=== PATIENT | male | born 1980 | race Caucasian/White ===

== ENCOUNTER 2022-04-21 05:52 | Day surgery (SDC) | payer OTHER, SELFPAY ==
[2022-04-21 06:28] VITALS: BP 122/83; PULSE 73; RESP 16; TEMP 36.6; O2SAT 97; BMI 37.9
[2022-04-21] MEDS: Lactated Ringers 1,000 ML 15 ML IV (06:35)
--- NOTE | 2022-04-21 07:16 | HP.PCM_ITS ---
History and Physical Date of Admission: 04/21/22 Intake Vital Signs ? 04/07/2213:04 Height 5 ft 10 in Weight: 260 lb 8 oz BMI 37.3 BP 134/86 H Blood Pressure Location Rt brachial Position Sitting Respiration 18 Pulse 77 Pulse SourceB NIBP Temp 97.7 F L Temp Source Temporal Pulse Oximetry (%) 97 Oxygen Delivery Method room air Intake Visit Reasons:?Umbilical Hernia Chief Complaint: umbilical hernia Boating Safety Officer Required: No Is patient in pain?: No Allergies No Known Allergies Allergy (Verified 04/07/22 13:05) Medications NK? 04/07/22 [History Confirmed 04/07/22] PFSH Medical History?(Updated 04/07/22 @ 13:[address] Calvin Negron MD) History of renal calculi Surgical History?(Updated 04/07/22 @ 13:03 by Carina Rae) History of extraction of renal calculus History of repair of ACL Family History?(Updated 04/07/22 @ 13:04 by Carina Rae) Father Diabetes Myocardial infarction Heart disease Social History?(Updated 04/07/22 @ 13:04 by Carina Rae) Smoking Status:? Former smoker HPI HPI HPI: Patient presents with umbilical hernia.? He says he has had this about a year and is becoming more painful especially when pushed on.? The patient reports no nausea or vomiting.? He has never had hernia repair in the past. ROS General General: No weight change, appetite, fatigue, colon cancer, breast cancer or weakness HEENT HEENT: No difficulty swallowing, eye injury, eye surgery, swollen glands or hoarseness Endo Endocrine: No thyroid disease, diabetes mellitus, thyroid cancer, Hair loss, heat intolerance or cold intolerance Musc Musculoskeletal: No back problems, arthritis, rheumatoid arthritis, gout or joint pain Cardio Cardiovascular: No murmur, pacemaker, heart disease, atrial fibrillation, high blood pressure, heart attack, heart stent, palpitations, shortness of breat with exertion or chest pain Psych Psychiatric: No depression, anxiety or hearing voices Resp Respiratory: No shortness of breath, No sleep apnea, No cough, No COPD, No asthma, No emphysema and No wheezing Gastro Gastrointestinal: Yes abdominal pain, No nausea or vomiting, No diarrhea, No constipation, No blood in stool, Yes acid reflux, No hemorrhoids, No ulcers, No gallbladder problem and No black,tarry stools Maxime Hematologic: No blood thinners, No blood disorders, No bleeding, No anemia and No blood clots Neuro Neurologic: No weakness Exam Const General: cooperative Orientation: alert and oriented x3 HENMT Head: normal to inspection Neck Neck: normal visual inspection and full ROM Chest Chest palpation & inspection: normal inspection of the chest Resp Effort & Inspection: normal respiratory effort Auscultation: clear to auscultation bilaterally Cardio Rate: regular rate Rhythm: regular rhythm GI Inspection: non-distended Palpation: soft, hernia umbilical and nontender Skin General: no rashes or lesions noted Neuro General: patient alert and patient oriented x3 Extrem General: full ROM Psych Appearance: grossly normal Mental Status: mental status grossly normal Assessment and Plan Assessment and Plan (1) Umbilical hernia without mention of obstruction or gangrene: ?Status:?Acute ?Qualifiers: ?Obstruction and gangrene presence:?without obstruction or gangrene? Qualified Code(s):?K42.9 - Umbilical hernia without obstruction or gangrene ?Plan: Patient is a very small umbilical hernia.? I discussed open umbilical hernia repair with him.? I discussed that I would recommend mesh if the hernia was over 1 cm in diameter but this is unlikely as the hernia seems very small.? I discussed suture repair if the defect is smaller than 1 cm.? Patient understands and is in agreement and would like to proceed with surgery.? I discussed the risks of bleeding infection and injury to underlying organs as well as mesh placement in detail.? Patient understands all the risks. Calvin Negron MD Pager: [facility] [address] [place] [address] [address] [place] [address] Office: I have examined the patient and the H&P has been reviewed. There are no clinical changes since date of exam.
[2022-04-21] MEDS: Cefazolin 2 GM in 0.9% Normal Saline 100 ML IV (07:40)
[2022-04-21] MEDS: Bupivacaine Mpf 0.5% 30 ML VIAL (07:43)
[2022-04-21 08:01] VITALS: BP 122/83; BP 137/85; PULSE 94; RESP 16; TEMP 36.4; O2SAT 93
--- NOTE | 2022-04-21 08:13 | OP.PCM_ITS ---
Report of Operation Date of Procedure: 04/21/22 Pre-Operative Diagnosis: Umbilical hernia Post-Operative Diagnosis: Umbilical hernia Surgery/Procedure Performed:: Umbilical hernia repair Description of Procedure: Patient was brought back to the operating room and general anesthesia was induced. The abdomen was prepped and draped in usual sterile fashion. An elliptical incision was marked over the umbilicus and then injected with local a nesthetic. Incision was made with a scalpel and deepened to the fascia. The hernia was dissected free circumferentially using electrocautery. The hernia contents were reduced. The hernia defect was less than 1 cm. The edges were cauterized to induce inflammation and then the defect was sutured closed in a transverse fashion using three 2-0 Ethibond sutures. The subcutaneous tissue was irrigated and suctioned dry and the incision was closed with interrupted 3-0 Vicryl suture and Steri-Strips. Patient tolerated the procedure well. Admit VTE Documentation VTE Mechan Device Prophylaxis: SCD's
[2022-04-21 08:15] VITALS: BP 122/83; BP 141/92; PULSE 77; RESP 16; O2SAT 92
--- NOTE | 2022-04-21 08:15 | DCINST_ITS ---
Discharge Instructions Procedure Hernia Diet Discharge Diet: Light diet - advance as tolerated Activity Discharge Activity: May Not Drive (for 2-3 days or while taking narcotic pain meds.) and May Shower (with the bandage in place 1-2 days after surgery.) Lifting Restrictions: 20 pounds for 4 weeks. Additional Activity Instructions:: Climbing stairs is fine, walking is encouraged. Sitting in bed may be uncomfortable. Sitting up using your lateral muscles (sitting up sideways) is usually more comfortable. Do not drive, work heavy equipment of sign legal documents for 24 hours. Ice 20 minutes on 20 minutes off as needed. Pain medications may cause nausea, you should typically eat light foods as you take your pain medications. Take ibuprofen and Tylenol alternating for pain. Oxycodone as needed for breakthrough pain. Pain medications may also cause constipation. If you have difficulty with this, discuss with your doctor. Dressing / Incision Call your doctor if your incision/area has: Continuous Slow Oozing, Sudden Increased Bleeding, Increased Pain/ Swelling, Increased Redness and Foul Smelling Discharge Call your doctor if you observe: Fever of 101 or Higher Suture Line Care: Avoid Pulling/Pushing and Avoid Pinching/Bending Remove Dressing in: 3 days (Remove clear bandages in 3 days, remove Steri-Strips in 7 to 10 days.) Cleanse incision/area with: Soap & Water Follow Up Care Please Follow Up With: Calvin Negron MD When: Please call to schedule 2 week follow up appointment. [phone] Test Results: Test results from this visit will be discussed in further detail at your follow- up appointment, if applicable. Discharge Plan Admission Attending Provider: Calvin Negron Primary Care Provider: Christina Hernadez Discharge Orders/Prescriptions Prescriptions: New oxycodone 5 mg tablet 5 - 10 mg PO Q6H PRN (Reason: pain) 5 Days Qty: 15 0RF Referrals / Follow Up: Christina Hernadez MD [Primary Care Provider] - Disposition Disposition (needs filled in before D/C Order can be placed): Home, Self Care
[2022-04-21 08:30] VITALS: BP 122/83; BP 148/92; PULSE 81; RESP 16; O2SAT 95
[2022-04-21 08:38] VITALS: BP 122/83; BP 139/86; PULSE 73; RESP 14; TEMP 36.4; O2SAT 95
[2022-04-21 09:35] VITALS: BP 122/83; BP 123/91; PULSE 74; RESP 18; TEMP 36.3; O2SAT 99
== END 2022-04-21 09:40 | disposition home or self-care (01) ==
LOC: SDC 05:53 → AC 05:54
PROVIDERS: PCP Family Medicine; Referring Provider Surgery; Visit Provider Surgery
PROC: (CPT 49585; principal; 2022-04-21 07:15)
DX: K42.9 Umbilical hernia without obstruction or gangrene (principal); Z87.891 Personal history of nicotine dependence; Z87.442 Personal history of urinary calculi; Z90.49 Acquired absence of other specified parts of digestive tract
CPT/HCPCS: 49585; 00830; J7120; J2405

== ENCOUNTER → 2023-06-18 | Outpatient (CLI) | payer OTHER, SELFPAY ==
[2023-06-18 15:14] LABS: Absolute Lymphocyte Count 3.05 X10^3/uL (0.83-4.51); Absolute Neutrophil Count 3.5 X10^3/uL (2.0-7.7); Basophil# 0.06 X10^3/uL; Basophil% 0.8 % (0-1); Eosinophil# 0.22 X10^3/uL; Hematocrit 44.2 % (40-54); Hemoglobin 14.8 g/dL (13.0-16.5); Lymphocyte # 3.05 X10^3/ul (0.83-4.51); Lymphocyte % 41.5 % (19-41); Mean Corp Hgb Conc 33.5 g/dL (32-36); Mean Corpuscular Hgb 27.6 pg (27.0-32.0); Mean Corpuscular Volume 82.5 fL (80-94); Mean Platelet Vol. 9.3 fl (6.2-12.0); Monocyte# 0.51 X10^3/uL; Monocyte% 6.9 % (0-10); NRBC Flagged by Analyzer 0 % (0-5); Neutrophil % 47.7 % (47-70); Platelet Count 278 K/mm3 (150-450); RBC Distribution Width CV 12.5 % (11.6-14.6); RBC Distribution Width SD 37.7 fl (35.1-43.9); Red Blood Count 5.36 M/mm3 (4.6-6.2); White Blood Count 7.4 K/mm3 (4.4-11.0)
[2023-06-18 16:17] LABS: ALB/GLOB Ratio 1.2 RATIO (0.9-2.4); AST(SGOT) 31 U/L (15-37); Alanine Aminotransfer ALT/SGPT 74 U/L (16-61); Albumin, Serum 4.1 g/dL (3.2-5.0); Alkaline Phosphatase 77 U/L (45-117); Anion Gap 4 (5-15); BUN 13 mg/dL (7-18); BUN/Creat Ratio 10.7 RATIO (10-20); Calcium,Total 9.5 mg/dL (8.5-10.1); Chloride 106 mmol/L (98-107); Cholesterol 192 mg/dL (200); Creatinine, Serum 1.21 mg/dL (0.70-1.30); EST Glomerular Filtration Rate 69 mL/min (>60); Est Glom Filt Rate - Afr Amer 84 mL/min (>60); Globulin 3.5 g/dL (2.2-4.2); Glucose 88 mg/dL (74-106); High Density Lipoprotein 43 mg/dL; Potassium 3.9 mmol/L (3.5-5.1); Protein, Total 7.6 g/dL (6.4-8.2); Sodium Level 140 mmol/L (136-145); Triglycerides 142 mg/dL; Very Low Density Lipoprotein 28 mg/dL (5-40)
== END | disposition home or self-care (01) ==
LOC: LAB 14:52
PROVIDERS: PCP Family Medicine; Referring Provider Family Medicine; Visit Provider Family Medicine
DX: Z00.00 Encounter for general adult medical examination without abnormal findings (principal)
CPT/HCPCS: 36415; 80053; 80061; 85025

== ENCOUNTER 2023-12-21 07:43 | Day surgery (SDC) | payer OTHER, SELFPAY ==
[2023-12-21] VITALS (9 sets, daily range): BP systolic 88–128; BP diastolic 37–87; PULSE 68–88; RESP 12–20; TEMP 36–36.3; O2SAT 91–99; BMI 37.6
--- NOTE | 2023-12-21 08:10 | PRE.ANES_ITS ---
ASA Classification* ASA Classification ASA Classification: 2 Assessment & Plan Anesthesia* Anesthesia Assessment Anesthesia Assessment: Discussed sedation and/or anesthesia options, risks, benefits, and alternatives with patient/parents/legal guardian/POA. Questions invited. The patient/parents/legal guardian/POA seems to understand and agrees to proceed with anesthesia plan. Reviewed the physical assessment, medical history, allergy history and patient home medications list prior to surgery/procedure/anesthetic and documented any changes. Performed airway and anesthesia risk assessments. Anesthesia Type Anesthesia Type: General (see written pre anesthesia record for full assessment) Anesthesia Focused Assessment* Airway Assessment Mouth opens: >3 cm Mallampati Score: II Focused Labs Anesthesia Preop lab: CBC WBC 7.4 K/mm3 (4.4-11.0) 06/18/23 14:54 RBC 5.36 M/mm3 (4.6-6.2) 06/18/23 14:54 Hgb 14.8 g/dL (13.0-16.5) 06/18/23 14:54 Hct 44.2 % (40-54) 06/18/23 14:54 Plt Count 278 K/mm3 (150-450) 06/18/23 14:54 CHEMISTRY Potassium 3.9 mmol/L (3.5-5.1) 06/18/23 14:54 Sodium 140 mmol/L (136-145) 06/18/23 14:54 BUN 13 mg/dL (7-18) 06/18/23 14:54 Creatinine 1.21 mg/dL (0.70-1.30) 06/18/23 14:54 Glucose 88 mg/dL (74-106) 06/18/23 14:54 COAG Pre-Assessment Diagnosis/Proposed Procedure Planned Operative Procedure(s): LAP VENTRAL/UMBILICAL HERNIA REPAIR WITH MESH Anesthesia History Anesthesia History - drosophere operator: Anesthesia History - drosophere operator Hx Hospitalization No 12/14/23 12:33 Any Problems With Anesthesia No 12/14/23 12:33 Cholinesterase deficiency No 12/14/23 12:33 You/Your Family Experience No 12/14/23 12:33 fever (hyperthermia) with Relationship Recent Exposure to Contagious Disease Does patient have nerve No 12/14/23 12:33 stimulator Patient instructed to have device shut off --Does patient have Pacemaker or ICD? When Was Last Pacemaker Check QUESTION #4 FULL TEXT: You/Your Family Experience fever (hyperthermia) with Anesthesia Last Oral Intake Last Oral intake: Last Oral Intake NPO since Meds taken in AM with sips of water? Meds patient instructed to take am of surgery PONV PONV - drosophere operator: PONV - drosophere operator Female No 12/14/23 12:33 HX of Motion Sickness No 12/14/23 12:33 HX of N/V After Surgery No 12/14/23 12:33 Non-Smoker Yes 12/14/23 12:33 Duration of Surgery greater Yes 12/14/23 12:33 than 60 minutes Number of Risk Factors 2 12/14/23 12:33 PONV Score Moderate Risk 12/14/23 12:33 Height & Weight Height & Weight: Anesthesia: Height & Weight Height 5 ft 10 in 12/18/23 07:48 Weight: 120.656 kg 12/18/23 07:48 Respiratory Assessment Respiratory Assessment - drosophere operator: Respiratory Tract Infection Hx - drosophere operator Hx Respiratory Tract Infection No 12/14/23 12:33 STOP Sleep Apnea STOP Sleep Apnea - drosophere operator: STOP Sleep Apnea - drosophere operator Hx Hypertension No 12/14/23 12:33 Hx Sleep Apnea No 12/14/23 12:33 CPAP BIPAP Do you snore loudly (louder No 12/14/23 12:33 than talking or can be heard Do you often feel tired/ No 12/14/23 12:33 fatigued/ sleepy during daytime? Has anyone observed you stop No 12/14/23 12:33 breathing during sleep? STOP Results Negative 12/14/23 12:33 QUESTION #5 FULL TEXT : Do you snore loudly (louder than talking or can be heard through closed doors)? 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 Specify any problems Hx of Preganancy in last 3 N/A 12/14/23 12:33 Months Nurse Filling Out Transfusion DSCHRIBER 12/14/23 12:33 & Questions: Date: 12/14/23 12/14/23 12:33 Time: 12:34 12/14/23 12:33 Patient unable to answer at this time (ie. confused, unrespo /Reproduction History /Reproductive History - drosophere operator: /Reproductive Hx- drosophere operator Hx Now No 12/14/23 12:33 Gestational Age (in weeks): EDC: Hx Hx Para Hx Section SAB No 12/14/23 12:33 Active Medications Active Medications: Current Medications Generic Name Dose Route Start Last Admin Trade Name Freq PRN Reason Stop Dose Admin Cefazolin Sodium 3 gm/ Sodium 115 mls @ 150 mls/hr 12/21/23 09:25 Chloride IV 12/21/23 10:10 PREOP ONE Lactated Ringer's 1,000 mls @ 15 mls/hr 12/21/23 08:15 IV .Q48H MARQUIS PFSH Medical History Loss of hearing Restless legs Wears glasses Alcohol use Heartburn Former smoker Home Medications ?Medication ?Instructions ?Recorded ?Last Taken ?Type NK 08/03/22 Unknown History Allergy/AdvReac Type Severity Reaction Status Date / Time No Known Allergies Allergy Verified 12/14/23 12:32 Family History Father Diabetes Myocardial infarction Heart disease Surgical History Hx of ventral hernia repair Hx of appendectomy History of repair of ACL History of extraction of renal calculus Social History Smoking Status: Former smoker Review of Systems (Anesthesia) ROS Narrative System reviewed and no additional complaints, except as documented.
--- NOTE | 2023-12-21 08:13 | EKG12_ITS ---
Test Reason : PRE OP Blood Pressure : / mmHG Vent. Rate : 063 BPM Atrial Rate : 063 BPM P-R Int : 166 ms QRS Dur : 098 ms QT Int : 402 ms P-R-T Axes : 063 039 029 degrees QTc Int : 411 ms Normal sinus rhythm Normal ECG No previous ECGs available Confirmed by Kota Ley ([id number]), editorial manager JOHN PALOMO ([id number]) on 01/01/2024 6:42:44 AM Referred By: Calvin Negron Confirmed By:Kota Ley
--- NOTE | 2023-12-21 08:29 | PCM.HP.BLA ---
History and Physical Date of Admission: 12/21/23 Intake Vital Signs 08/04/2311:15 11/22/2413:38 Height 5 ft 10 in 5 ft 10 in Respiration 18 Intake Visit Reasons: PAIN/IRRIATION AT SURGICAL SITE Chief Complaint: bulge at umbilicus Mechanical Service Technician Required: No Is patient in pain?: No Allergies No Known Allergies Allergy (Verified 11/23/23 14:39) Medications ?Medication ?Instructions ?Recorded ?Confirmed ?Type NK 08/03/22 11/23/23 History Have you fallen in the past year?: No PFSH Medical History Wears glasses Alcohol use Heartburn Former smoker History of renal calculi Surgical History Hx of appendectomy History of repair of ACL History of extraction of renal calculus Family History Father Diabetes Myocardial infarction Heart disease Social History Smoking Status: Former smoker HPI HPI HPI: Patient is a 43-year-old male with recurrent bulge at his prior hernia site. The patient had umbilical hernia repair with mesh in 2021. He reports about 3 months ago he started having bulging at his umbilicus again and having pain when he lifts something heavy. ROS General General: No weight change, appetite, fatigue, colon cancer, breast cancer or weakness HEENT HEENT: No difficulty swallowing, eye injury, eye surgery, swollen glands or hoarseness Endo Endocrine: No thyroid disease, diabetes mellitus, thyroid cancer, Hair loss, heat intolerance or cold intolerance Skin Skin: No rash or changing moles Breast Breast: No left breast lump, right breast lump, nipple discharge, breast pain, abnormal mammogram, abnormal US or breast enlargement Musc Musculoskeletal: No back problems, arthritis, rheumatoid arthritis, gout or joint pain Cardio Cardiovascular: No murmur, pacemaker, heart disease, atrial fibrillation, high blood pressure, heart attack, heart stent, palpitations, shortness of breat with exertion or chest pain Psych Psychiatric: No depression, anxiety or hearing voices Resp Respiratory: No shortness of breath, No sleep apnea, No cough, No COPD, No asthma, No emphysema and No wheezing Gastro Gastrointestinal: Yes abdominal pain, No nausea or vomiting, No diarrhea, No constipation, No blood in stool, No acid reflux, No hemorrhoids, No ulcers, No gallbladder problem and No black,tarry stools Maxime Hematologic: No blood thinners, No blood disorders, No bleeding, No anemia and No blood clots Neuro Neurologic: No system reviewed and no additional complaints, except as documented, No as per HPI, No abnormal gait, No abnormal hearing, No abnormal movements, No abnormal speech, No behavioral changes, No burning sensations, No confusion, No convulsions, No disequilibrium, No dizziness, No localized weakness, No frequent falls, No headache(s), No lack of coordination, No loss of vision, No memory loss, No numbness, No other visual disturbances, No radicular pain, No restless legs, No sensory deficit, No syncope, No tingling, No tremor(s), No weakness and No other Exam Const General: cooperative Orientation: alert and oriented x3 HENMT Head: normal to inspection Neck Neck: normal visual inspection and full ROM Chest Chest palpation & inspection: normal inspection of the chest Resp Effort & Inspection: normal respiratory effort Auscultation: clear to auscultation bilaterally Cardio Rate: regular rate Rhythm: regular rhythm GI Inspection: non-distended Palpation: soft, hernia umbilical and nontender Skin General: no rashes or lesions noted Neuro General: patient alert and patient oriented x3 Extrem General: full ROM Psych Appearance: grossly normal Mental Status: mental status grossly normal Assessment and Plan Assessment and Plan (1) Recurrent umbilical hernia: Status: Acute Plan: The patient seems to have a recurrent umbilical hernia. It does contain fat and it is reducible. I discussed performing a laparoscopic repair with a larger piece of mesh. I discussed the procedure in detail as well as the risks including but not limited to bleeding, infection, injury other organs such as the bowel or bladder. I also discussed possibly removing the old mesh or having to perform an incision over the hernia to close it open. Calvin Negron MD Pager: [facility] [address] [place] [address], [address] [place] [address] Office: I have examined the patient and the H&P has been reviewed. There are no clinical changes since date of exam.
[2023-12-21] MEDS: Lactated Ringers 1,000 ML 15 ML IV ×2 (08:35→10:19)
[2023-12-21] MEDS: Cefazolin 3 GM in 0.9% Normal Saline (100mL Bag) 100 ML IV (09:05)
--- NOTE | 2023-12-21 09:25 | HERN_PTH ---
PATIENT: BALBIR TREVIÑO LOC: [facility] [place] U#:[id number] AGE/SX: 43/M ROOM: RE12/21/[address]: Dr. Calvin Negron MD : 1980 BED: DIS: 12/21/2023 SPEC #: [id number] RECD: 12/21/23 10:00 STATUS: JYOTSNA CARROLL #: [id number] MARIAA: 12/21/23 09:[address]: Calvin Negron DEPT: SURGICAL PATHOLOGY RECD BY: Mariama Moreno ENTERED: 12/21/23 11:16 SP TYPE: Hernia OTHR DR: Dr. Christina Hernadez MD Tissues: HERNIA Procedures: Surgery Specimen Level II HEADER OPERATION: Laparoscopic, recurrent umbilical hernia repair with mesh PRE-OP DIAGNOSIS: Recurrent umbilical hernia TISSUE SUBMITTED: Hernia sac MICROSCOPIC DIAGNOSIS Hernia sac: A piece of fibroadipose and fibroconnective tissue, consistent with hernia sac with chronic inflammation and reactive changes. SJ/mr 12/22/2023 MICROSCOPIC DESCRIPTION Slides are reviewed. GROSS DESCRIPTION Received in fixative is one container labeled with the patient's name and designated Hernia sac. The specimen consists of a piece of gutierrez-pink soft tissue measuring 2.8 x 1.2 x 0.7cm. Sections do not reveal any mass lesion. The specimen is bisected and do not reveal any mass lesion. The entire specimen is submitted in one cassette. 12/21/2023 TC:5 CPT:62861
[2023-12-21] MEDS: Bupiv/Epi 0.25% 30 ML Vial (09:28)
--- NOTE | 2023-12-21 09:38 | PCM.OPRPT ---
Report of Operation Date of Procedure: 12/21/23 Pre-Operative Diagnosis: Recurrent umbilical hernia Post-Operative Diagnosis: Recurrent umbilical hernia Surgery/Procedure Performed:: Laparoscopic recurrent umbilical hernia repair with mesh Type of Anesthesia: General/Regional Specimen's removed: Hernia sac Estimated Blood Loss (mL): 5 Description of Procedure: Patient was brought back the operating room and general anesthesia was induced. The abdomen was prepped and draped in usual sterile fashion. A small incision was made in the left upper quadrant and using Visiport technique the abdomen is entered and inflated to 15 mmHg. There were no injuries from entry. Next the umbilical hernia was identified. The local incision was reincised and the hernia sac was identified and excised. Three 0 Nurolon sutures were used to close the hernia defect but they were not tied. A 12 mm port was placed through the umbilical defect and the abdomen was reinsufflated. Next an [address] round mesh with echo positioning device was chosen. It was placed through the umbilical port. Next a 5 mm port was made in the left lower quadrant under direct visualization. After the mesh was positioned the balloon was inflated and clamped and then 4 tacks were used to tack the mesh in place. Next the balloon was removed in its entirety. Next the mesh was circumferentially tacked to the anterior abdominal wall using secure strap tacker. There was good overlap of the hernia on all sides. The abdomen was then allowed to desufflate. The sutures overlying the midline hernia were then closed. The skin incisions were injected with local anesthetic and closed with interrupted 4-0 Monocryl sutures. Steri-Strips and bandages were applied. Patient was taken to PACU in stable condition and tolerated procedure well. Grafts/Implants Used: [address] mesh Admit VTE Documentation VTE Mechan Device Prophylaxis: SCD's
--- NOTE | 2023-12-21 09:49 | EX.PCM.DISCH ---
Discharge Instructions Procedure Hernia Diet Discharge Diet: Light diet - advance as tolerated Activity Discharge Activity: May Not Drive (for 2-3 days or while taking narcotic pain meds.) and May Shower (with the bandage in place 1-2 days after surgery.) Lifting Restrictions: 20 pounds for 6 weeks. Additional Activity Instructions:: Climbing stairs is fine, walking is encouraged. Sitting in bed may be uncomfortable. Sitting up using your lateral muscles (sitting up sideways) is usually more comfortable. Do not drive, work heavy equipment of sign legal documents for 24 hours. If your hernia repair was an ingunial repair, you may have scrotal swelling, an ice pack and/or athletic support can provide more comfort. Pain medications may cause nausea, you should typically eat light foods as you take your pain medications. Pain medications may also cause constipation. If you have difficulty with this, discuss with your doctor. Alternate ibuprofen and Tylenol for pain control, oxycodone for breakthrough pain. Dressing / Incision Call your doctor if your incision/area has: Continuous Slow Oozing, Sudden Increased Bleeding, Increased Pain/ Swelling, Increased Redness and Foul Smelling Discharge Call your doctor if you observe: Fever of 101 or Higher Suture Line Care: Avoid Pulling/Pushing and Avoid Pinching/Bending Remove Dressing in: 2 days (Remove clear bandages in 2 days, remove Steri-Strips in 7 to 10 days.) Follow Up Care Please Follow Up With: Calvin Negron MD When: Please call to schedule 2 week follow up appointment. [phone] Test Results: Test results from this visit will be discussed in further detail at your follow-up appointment, if applicable. Discharge Plan Admission Attending Provider: Calvin Negron Primary Care Provider: Christina Hernadez Instructions Print Language: Bengali Discharge Orders/Prescriptions Prescriptions: New oxycodone 5 mg Tablet 5 - 10 mg PO Q4H PRN PRN (Reason: Pain Score 4-10) 5 Days Qty: 20 0RF Referrals / Follow Up: Christina Hernadez MD [Primary Care Provider] - Disposition Disposition (needs filled in before D/C Order can be placed): Home, Self Care
--- NOTE | 2023-12-21 09:52 | PCM.POST.ANE ---
Anesthesia: Postop Eval I Current Vital Signs Temperature: 96.8 F Pulse Rate: 81 Blood Pressure: 88/37 Respiratory Rate: 20 Pulse Ox: 93 Oxygen Delivery Method: Room Air Assessment Airway patent: Yes Spontaneous unlabored respirations: Yes Mental status: Awake and Calm nausea: No Vomiting: No Anesthesia Complication: No Fluid Hydration Crystalloid volume administer (ml): 500 Total IV fluid infused: 500 Progress Note Anesthesia document: Postop Eval 1 completed: Yes
--- NOTE | 2023-12-21 10:13 | POSTOPAN2_ITS ---
Anesthesia Postop Eval I Sum Postop Eval Completion status Anesthesia document: Postop Eval 1 completed: Yes Anesthesia Postop Eval I Summary Anesthesia Postop Eval I Summary: Anesthesia Postop Eval I: Assessment Summary Airway patent Yes 12/21/23 09:54 CUSTOMER SERVICE COORDINATOR.JDEF Spontaneous unlabored Yes 12/21/23 09:54 CUSTOMER SERVICE COORDINATOR.JDEF respirations Mental status Awake,Calm 12/21/23 09:54 CUSTOMER SERVICE COORDINATOR.JDEF nausea No 12/21/23 09:54 CUSTOMER SERVICE COORDINATOR.JDEF Vomiting No 12/21/23 09:54 CUSTOMER SERVICE COORDINATOR.JDEF Anesthesia Postop Eval I: Fluid Summary Crystalloid volume administer 500 12/21/23 09:54 CUSTOMER SERVICE COORDINATOR.JDEF (ml) Colloids volume administered ( ml) Blood Product volume administered (ml) Total IV fluid infused 500 12/21/23 09:54 CUSTOMER SERVICE COORDINATOR.JDEF Anesthesia Postop Eval I: Summary Notes Anesthesia Complication No 12/21/23 09:54 CUSTOMER SERVICE COORDINATOR.JDEF Anesthesia Complication Comment: Post-operative progress note Anesthesia: Postop Eval II Evaluation Mental status: Awake Pain Level: 0 nausea: No Vomiting: No
--- NOTE | 2023-12-21 10:13 | PCM.POSTANE2 ---
Anesthesia Postop Eval I Sum Postop Eval Completion status Anesthesia document: Postop Eval 1 completed: Yes Anesthesia Postop Eval I Summary Anesthesia Postop Eval I Summary: Anesthesia Postop Eval I: Assessment Summary Airway patent Yes 12/21/23 09:54 DRIVE IN TELLER.JDEF Spontaneous unlabored Yes 12/21/23 09:54 DRIVE IN TELLER.JDEF respirations Mental status Awake,Calm 12/21/23 09:54 DRIVE IN TELLER.JDEF nausea No 12/21/23 09:54 DRIVE IN TELLER.JDEF Vomiting No 12/21/23 09:54 DRIVE IN TELLER.JDEF Anesthesia Postop Eval I: Fluid Summary Crystalloid volume administer 500 12/21/23 09:54 DRIVE IN TELLER.JDEF (ml) Colloids volume administered ( ml) Blood Product volume administered (ml) Total IV fluid infused 500 12/21/23 09:54 DRIVE IN TELLER.JDEF Anesthesia Postop Eval I: Summary Notes Anesthesia Complication No 12/21/23 09:54 DRIVE IN TELLER.JDEF Anesthesia Complication Comment: Post-operative progress note Anesthesia: Postop Eval II Evaluation Mental status: Awake Pain Level: 0 nausea: No Vomiting: No
[2023-12-21] MEDS: oxyCODONE 5 MG Tablet PO (11:30)
== END 2023-12-21 11:54 | disposition home or self-care (01) ==
LOC: SDC 07:45 → AC 07:45
PROVIDERS: PCP Family Medicine; Referring Provider Surgery; Visit Provider Surgery
PROC: 0WQF4ZZ Repair Abdominal Wall, Percutaneous Endoscopic Approach (ICD-10-PCS; CPT 49613; principal; 2023-12-21 09:05)
DX: K42.9 Umbilical hernia without obstruction or gangrene (principal); Z87.891 Personal history of nicotine dependence; Z90.49 Acquired absence of other specified parts of digestive tract; Z87.19 Personal history of other diseases of the digestive system
CPT/HCPCS: 49613; 00830; 88302; 93005; J2405

== ENCOUNTER → 2025-04-18 | Outpatient (CLI) | payer OTHER, SELFPAY ==
[2025-04-18 15:20] LABS: Hematocrit 45.8 % (40-54); Hemoglobin 15.8 g/dL (13.0-16.5); Immature Granulocytes Count 0.010 X10^3/uL (0.0-0.0); Mean Corp Hgb Conc 34.5 g/dL (32-36); Mean Corpuscular Volume 83.4 fL (80-94); Mean Platelet Vol. 9.7 fl (6.2-12.0); NRBC Flagged by Analyzer 0 % (0-5); Platelet Count 293 K/mm3 (150-450); RBC Distribution Width CV 13.0 % (11.6-14.6); RBC Distribution Width SD 39.6 fl (35.1-43.9); Red Blood Count 5.49 M/mm3 (4.6-6.2); White Blood Count 6.2 K/mm3 (4.4-11.0)
[2025-04-18 15:51] LABS: AST(SGOT) 20 U/L (<=37); Alanine Aminotransfer ALT/SGPT 22 U/L (<=46); Albumin, Serum 4.5 g/dL (3.5-5.0); Alkaline Phosphatase 61 U/L (40-129); Anion Gap 11 (5-15); BUN 23 mg/dL (4-19); BUN/Creat Ratio 12.6 RATIO (10-20); Calcium,Total 9.3 mg/dL (7.6-11.0); Carbon Dioxide 25.6 mmol/L (21.0-32.0); Chloride 102 mmol/L (98-108); Cholesterol 244 mg/dL (<=200); Globulin 2.7 g/dL (2.2-4.2); Glucose 100 mg/dL (70-99); Low Density Lipoprotein Calc. 167 mg/dL; Potassium 4.3 mmol/L (3.3-5.1); Triglycerides 95 mg/dL; Very Low Density Lipoprotein 19 mg/dL (5-40); cholesterol:hdl ratio screen 4.07
[2025-04-18 15:59] LABS: CRP < 3.00 mg/L (0.0-3.0)
== END | disposition home or self-care (01) ==
LOC: BFHLAB 13:24
PROVIDERS: PCP Family Medicine; Visit Provider Nurse Practitioner Family
DX: Z00.00 Encounter for general adult medical examination without abnormal findings (principal); R79.89 Other specified abnormal findings of blood chemistry; M25.50 Pain in unspecified joint
CPT/HCPCS: 36415; 80053; 80061; 85025; 85652; 86140